=== PATIENT | female | born 1975 | race Caucasian/White ===

== ENCOUNTER 2019-01-29 06:55 | Emergency (ER) | payer OTHER ==
[~2019-01-29] VITALS: Ht 165.1 cm; Wt 127.0 kg
[~2019-01-29 06:55] MED LIST: APAP500 PO; CYCLOBENZAPRINE5 MG PO; IBUPROFEN 200200 M1 PO
[2019-01-29] MEDS ORDERED: PREDNISONE 10 M10 MG PO (07:15)
[2019-01-29] MEDS ORDERED: SINGULAIR 10 MG10 M1 PO (07:15)
[2019-01-29] MEDS ORDERED: AMOXICILLIN 50500 MG PO (07:54)
[2019-01-29 08:01] VITALS: BP 176/95
== END 2019-01-29 08:01 | disposition home or self-care (01) ==
LOC: M.ERS 06:55
DX: J02.9 Acute pharyngitis, unspecified (principal); G43.909 Migraine, unspecified, not intractable, without status migrainosus